=== PATIENT | male | born 1960 | race Caucasian/White ===

== ENCOUNTER 2022-03-03 09:23 | Outpatient (RCR) | payer BC, SELFPAY | END 2022-05-22 10:35 | disposition home or self-care (01) | PROVIDERS: PCP Family Medicine; Visit Provider Family Medicine | DX: M53.3 Sacrococcygeal disorders, not elsewhere classified (principal); Z51.89 Encounter for other specified aftercare | CPT/HCPCS: 97110; 97161 ==

== ENCOUNTER 2022-12-10 12:40 | Outpatient (CLI) | payer OTHER, SELFPAY ==
--- NOTE | 2022-12-10 13:00 | MR_ITS ---
[address] [address] Phone:?[phone] Fax:?[phone] Referring Physician Information: Anival York D.O. [address] [facility] [address] Phone:?[phone] Fax:?[phone] Patient:Frederick Wolfe Kip.Erica.B:?1960 Sex:?Male Phone:?[phone] [facility] MRN:?[id number] Exam Date:?12/10/2022 EXAM: MRI of the LEFT KNEE, without contrast CLINICAL: Left knee pain. COMPARISONS: None available. TECHNICAL: Multiplanar multisequence MRI of the left knee was obtained. SEDATION: None. CONTRAST: None. FINDINGS: Ligaments: ACL: Intact and unremarkable. PCL: Intact and unremarkable. MCL: Intact and unremarkable. LCL: Intact and unremarkable. Posterolateral corner: Popliteus, biceps femoris, iliotibial band, and the popliteofibular ligament appear intact. Posteromedial corner: Semimembranosus, pes anserine tendons and posterior oblique ligament appear intact. Extensor mechanism: Patellar tendon: There is minimal tendinosis and minimal partial tearing of the distal patellar tendon at the tibial attachment on axial series 4 images 31-35. Quadriceps tendon: Intact, without tendinopathy. Retinacula: Medial and lateral retinacula are intact. Fat pads: Unremarkable infrapatellar Hoffa's, quadriceps and prefemoral fat pads. Patellofemoral joint: Patella: Grade 2-3 chondral thinning involves the peripheral medial patellar facet with minimal subchondral edema involving the peripheral medial patellar facet. Trochlea: There is high-grade and full-thickness chondral loss involving the medial and central trochlea with underlying subchondral reactive edema. Medial compartment: Medial meniscus: There is horizontal undersurface tearing involving the posterior horn on sagittal series 6 image 6-9 with complex tearing and free edge blunting involving the body segment on coronal series 8 images 18-21. No significant meniscal displacement. Medial cartilage: Grade 3 chondral loss involves the posterior nonweightbearing medial femoral condyle. There is mild chondral heterogeneity of the weightbearing medial femoral condyle. Medial tibial plateau cartilage is preserved. Lateral compartment: Lateral meniscus: Mild focal radial tearing involving the free edge of the body segment on coronal series 8 image 19. Lateral meniscus otherwise appears intact. No meniscal displacement. Lateral cartilage: There is heterogeneity of the lateral tibial plateau cartilage. Focal deep chondral fissuring involves the posterior lateral tibial plateau adjacent to the posterior horn lateral meniscus on sagittal series 6 image 20. Small segment of high-grade/full-thickness chondral loss involves the weightbearing lateral femoral condyle on coronal series 8 image 20-22. Knee joint: Effusion: Physiologic left knee effusion. Intra-articular bodies:?Small intra-articular body is present posterior to the distal PCL measuring approximately 10 mm in craniocaudal dimension as seen on sagittal series 5 image 15. Popliteal cyst: None. Bones: No suspicious bone marrow signal alteration or fracture line. IMPRESSION: 1. Tearing of the medial meniscus as above. 2. Mild focal radial tear involving the free edge of the body segment lateral meniscus. 3. Joint frontal chondromalacia/chondral loss as above. 4. Minimal tendinosis/partial tearing of the distal patellar tendon at the tibial attachment. 5. Small 10 mm intra-articular body posterior to the distal PCL. 6. No evidence of ligamentous injury or fracture. [facility] Electronically signed on 12/11/2022 10:07:00 AM by Saji Arriola D.O.
== END 2022-12-10 12:41 | disposition home or self-care (01) ==
LOC: MRI 12:40
PROVIDERS: PCP Family Medicine; Visit Provider Family Medicine
DX: M25.562 Pain in left knee (principal); S83.242A Other tear of medial meniscus, current injury, left knee, initial encounter; S83.282A Other tear of lateral meniscus, current injury, left knee, initial encounter
CPT/HCPCS: 73721

== ENCOUNTER 2025-01-28 14:02 | Emergency (ER) | payer MEDICARE, SELFPAY ==
--- OUTSIDE RECORDS SUMMARY | 2025-01-28 14:04 | XMS_ITS | Clinical Summary ---
Author Organization [facility] Address [address] [place] [id number] Care Team Providers Care Parts Person Name Role Phone Zach Phillips MD Unavailable [phone] Fernie Kent MD Primary Care Provider + Allergies Active Allergy Reactions Criticality Noted Date Comments Dust Mites Other - Describe In Comment Field 12/29/2012 Sneezing, Congestion Medications MEDICATION ORDER COMPOSERIndication s:Unspecified sleep apnea cpap machine (replacement) and any tubing/mask needed to go with it, pressure setting at 8 cm 1 0 9 Active aspirin enteric coated 81 mg tablet Take 1 tablet by mouth once daily with a meal. 0 1 Active loratadine (CLARITIN) 10 mg tabletIndications: Rhinitis, unspecified type Take 1 Tablet (10 mg) by mouth once daily. 30 Tablet 3 Active fluticasone (50 mcg per actuation) nasal solution (FLONASE)Indicatio ns:Dysfunction of both eustachian tubes Inhale 2 Sprays into affected nostril(s) once daily. 48 g 3 4 Active CPAPIndications:OS A (obstructive sleep apnea) RESMED CPAP (E0601) machine for home use at pressure: 5-15cmw, Choice of mask (A7030 or A7034) w/full face cushion (A7031) x1/mo, nasal cushion (A7032) x2/mo, or nasal pillows (A7033) x 2/mo; Length of Need: 99 months; Frequency of use: Daily 1 Each 11 4 Active amLODIPine (NORVASC) 5 mg tabletIndications: Primary hypertension Take 1 Tablet (5 mg) by mouth once daily. 90 Tablet 3 4 Active atorvastatin (LIPITOR) 40 mg tabletIndications: Other hyperlipidemia TAKE 1 TABLET(40 MG) BY MOUTH EVERY DAY 90 Tablet 2 4 Active CPAPIndications:Ob structive sleep apnea CPAP (E0601) machine for home use at pressure: 5-15 cmH2O, Choice of mask (A7030 or A7034) w/full face cushion (A7031) x1/mo, nasal cushion (A7032) x2/mo, or nasal pillows (A7033) x 2/mo; Heated humidifier (E0562) x 1/5 year, Humidifier chamber (A7046) x 1/6mo, Chinstrap (A7036) x 1/6mo, Tubing (A4604 or A7037) x 1/3mo, Headgear (A7035) x 1/6mo, Filters: Disposable (A7038) x 2pk/1mo & Reusable (A7039) x 1pk/6mo; Length of Need: 99 months; Frequency of use: Daily DME: [employer]EW[employer] FOR SUPPLIES 1 Each 4 Active Active Problems Problem Noted Date Diagnosed Date Arthritis of right knee 09/19/2024 Radiculopathy with left lower extremity symptoms 04/06/2024 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 [address] [place] [address] Greg Connro MD Musculoskeletal Problem (Consult right knee pain, discuss PRP (platelet rich plasma) or Coolief procedures per TRU Aguilar) 01/01/2025 Travel 12/18/2024 9:30 AM CDT Office Visit [facility] [address] [address] Emiliano Najera PA Follow Up (right knee) 12/18/2024 Travel 11/29/2024 2:40 PM CDT Office Visit [facility] [address] [place] [address] Anival York DO Ear Problem (Bilateral ear wash ) 11/29/2024 Travel 11/27/2024 3:00 PM CDT Office Visit [facility] [address] [place] [address] Edwina Huntley AuD Hearing Aid (MOE check) 11/27/2024 Travel 11/24/[address] [facility] [address] [place] [address] Delfino Alfred AuD Hearing Aid (problem) 11/24/[address] [facility] [address] [place] [address] Delfino Alfred AuD DROPPED OFF HEARING AID 11/24/2024 Telephone [facility] [address] [place] [address] Aminah Boyd AuD Hearing Aid 11/22/2024 Telephone [facility] [address] [place] [address] Michael Thompson MD Knee Pain/problem from Last 3 Months Immunizations Immunization Administration Dates Next Due AMB Influenza, IIV3 (Age >=3 years)(Flu Clinic Only) 03/23/2011 AMB Influenza, IIV4 PF (=>6 mos Flulaval,Fluzone Fluarix)(Flu Clinic Only) 03/15/2014,03/23/2013 COVID-19 vaccine (Spinal Simplicity [employer] 30mcg/0.3mL) PF, MDV 04/29/2021,09/26/2020,09/05/2020 Influenza, IIV3 (Age 6-35 mos) 03/23/2011,2008 Influenza, IIV3 (Age >=3 years) 05/13/2012,04/07 Influenza, IIV4 03/18/2023, 2,03/24/2021,2019,04/04/2019,02/21/2018,02/26/2016,1 Influenza, IIV4 (=>6mos) MDV 02/18/2017 Influenza, IIV4 (Age 6-35 Mos) 03/23/2013 Pneumococcal Conj 20-valent (Prevnar 20) 02/09/2024 Pneumococcal Poly,23-Valent (Pneumovax) 06/14/1998 Td (Age >=7 Years) 02/12/2021,10/10/2004 Tdap 12/28/2011 Zoster (Shingrix-RZV, recombinant) 03/07/2020, Family History Medical History Relation Name Comments Cancer Father lung, smoker d5 2 Heart Disease Mother d71, mi Cancer-colon No Family History Cancer-prostate No Family History Relation Name Status Comments Brother Alive Daughter Alive Father Mother Sister 1 Alive Sister 2 Alive Sister 3 Alive Social History Tobacco Use Types Packs/Day Years Used Date Smoking Tobacco: Former Cigarettes Q uit: 06/14/2002 Smokeless Tobacco: Never Tobacco Cessation:Counseling Given: Yes Alcohol Use Standard Drinks/Week Comments Yes 14 (1 standard drink = 0.6 oz pu re alcohol) daily, 3-4 beers PHQ-2 Answer Date Recorded PHQ-2 TOTAL SCORE 0 04/12/2024 Social Connections Answer Date Recorded Do you often feel lonely or isolated from those around you? 0 11/29/2024 Financial Resource Strain Answer Date R ecorded Difficulty of Paying Living Expenses 3 11/29/2024 Difficulty of Paying Living Expenses Not on file 11/29/2024 Food Insecurity Answer Date Recorded Do you worry your food will run out before you are able to buy more? 1 11/29/2024 Transportation Needs Answer Date Record ed Does lack of transportation keep you from medica l appointments? 1 11/29/2024 Does lack of transportation keep you from work, meetings or getting things that you need? 1 11/29/2024 Housing Stability Answer Date Recorded What is your housing situation today? 1 11/29/2024 Utilities Answer Date Recorded Do you have trouble paying f or utilities (for example, heat, electricity, water, phone)? 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[employer] Gender Identity Not on file Sexual Orientation Not on file Occupation Industry Job Start Date Job End Date [employer] Not on file Not on file Not on file Obstetrics History Last Filed Vital Signs Vital Sign Reading Time Taken Comments Blood Pressure 151/80 01/01/2025 7:55 AM CDT Pulse 54 01/01/2025 7:55 AM CDT Temperature 36.9 C (98.4 F) 01/01/2025 7:55 AM CDT Respiratory Rate 18 03/15/2013 12:45 PM CDT Oxygen Saturation 95% 01/01/2025 7:55 AM CDT Inhaled Oxygen Concentration - - Weight 103.4 kg (228 lb) 11/29/2024 2:53 PM CDT Height 178 cm (5' 10.08) 05/25/2024 12:17 PM CS T Body Mass Index 32.64 05/25/2024 12:17 PM [employer] WORK[employer] Plan of Treatment Health Maintenance Due Date Last Done Comments COVID-19 vaccine series ( season) 2024 04/29/2021, 09/26/2020, 09/05/2020 Colonoscopy through age 75 06/16/202406/16, 06/16/2019, 06/16/2019, Additional history exists Influenza Vaccine (#1) 2025 3, 02/17/2022, 03/24/2021, Additional history exists Depression screening for age 12+ 04/12/2025 04/12/2024, 02/10/2024, 02/09/2024, Additional history exists Medicare Wellness for age 65+ 04/13/2025 04/12/2024 BMI (ht and wt on same day) for age 18+ 05/25/2025 05/25/2024, 04/12/2024, 04/06/2024, Additional history exists Lipids for age 45-75 02/23/2029 02/24/2024, 02/18/2023, 02/17/2022, Additional history exists Tetanus booster 02/12/2031 02/12/2021, 12/12, 10/10/2004 RSV vaccine for adults or (1 - 1-dose 75+ series) 2033 Hepatitis C screening for age 18-79 Completed 01/05/2014 Zoster (shingles) series for age 50+ Completed 03/07/2020, 11/23/2019 Pneumococcal series for age 50+ Completed 02/09/2024, 06/14/1998 AAA screening age 65-74 Completed 04/26/2024 Hepatitis B series for 19+ Aged Out N o longer eligible based on patient's age to complete this topic Procedures Procedure Name Priority Date/Time Associated Diagnosis Comments US ABD AORTA SCREENING Routine 04/26/2024 1:15 PM [employer] WORK[employer] Personal history of tobacco use, presenting hazards to health LIPID PANEL Routine 02/24/2024 7:23 AM CDT Other hyperlipidemia COLONOSCOPY SCREENING Routine 06/16/2019 11:51 AM [employer]EMENT ST[employer]AGE WORKER Screening for colon cancer ANTI HCV Routine 01/05/2014 9:13 AM CDT Need for hepatitis C screening test from Last 3 Months or Most Recently Relevant to Health Maintenance Results * US ABD AORTA SCREENING [[id number]] (04/26/2024 1:15 PM [employer] WORKER) Anatomical Region Laterality Modality Abdomen, AORTA Ultrasound 04/26/2024 8:07 PM [employer] STORAGE WORKER Narrative 04/26/2024 8:07 PM [employer]EMENT STORAGE WORKER For Patients: As a result of the Cures Act, medical imaging exams and procedure reports are released immediately into your electronic medical record. You may view this report before your referring provider. If you have questions, please contact your health care provider. Indication: Abdominal aortic aneurysm screening Technique: Grayscale and color ultrasound evaluation of the aorta and bilateral iliac arteries was performed. Comparison: None. Findings: Proximal aorta: 2.5 x 2.1 cm Mid aorta: 2 x 1.9 cm Distal aorta: 1.9 x 2 cm Right iliac artery: 1.6 x 1.4 cm Left iliac artery: 1.4 x 1.5 cm Impression: No sonographic evidence of abdominal aortic aneurysm. Dictated by Filemon Owens MD @ 04/26/2024 8:07:37 PM (Electronically Signed) Procedure Note Filemon Owens MD - 04/26/2024 For Patients: As a result of the Cures Act, medical imagingexams and procedure reports are released immediately into your electronicmedical record. You may view this report before your referring provider.If you have questions, please contact your health care provider. Indication: Abdominal aortic aneurysm screening Technique: Grayscale and color ultrasound evaluation of the aorta and bilateral iliacarteries was performed. Comparison: None. Findings: Proximal aorta: 2.5 x 2.1 cm Mid aorta: 2 x 1.9 cm Distal aorta: 1.9 x 2 cm Right iliac artery: 1.6 x 1.4 cm Left iliac artery: 1.4 x 1.5 cm Impression: No sonographic evidence of abdominal aortic aneurysm. Dictated by Filemon Owens MD @ 04/26/2024 8:07:37 PM (Electronically Signed) us Fernie Kent MD Final Re sult * LIPID PANEL (02/24/2024 7:23 AM CDT) [facility] CHOLESTEROL,TOTAL 162 100 - 199 mg/dL 02/24/2024 2:15 PM CDT [facility] [employer] LAB[facility] Comment: Cholesterol, Total Reference Ranges Desirable <200 mg/dL Borderline 200-239 mg/dL High >=240 mg/dL TRIGLYCERIDES 74 <150 mg/dL 02/24/2024 2:15 PM CDT [facility] HDL CHOLESTEROL 74 >40 mg/dL 2:15 PM CDT [facility] NON-HDL CHOLESTEROL 88 <145 mg/dl 02/24/2024 2:15 PM CDT [facility] CHOL/HDL RATIO 2.19 <4.50 02/24/2024 2:15 PM CDT [facility] LDL CHOLESTEROL 73 <=130 mg/dL 02/24/2024 2:15 PM CDT [facility] VLDL CHOLESTEROL 15 <=30 mg/dL 02/24/2024 2:15 PM CDT [facility] PROVIDER ORDERED STATUS RANDOM 02/24/2024 2:15 PM CDT [facility] Blood BLOOD SPECIMEN / Unknown Venipuncture / Unknown 02/24/2024 7:23 AM CDT 02/24/2024 7:23 AM CDT us Fernie Kent MD CHEMISTRY Final Re sult Performing Organization Address City/[facility]/ZIP Co de Phone Number [facility] 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 us Darrell Lazo MD SEND OUTS Final Resu lt [facility] [address] [place] [address], from Last 3 Months or Most Recently Relevant to Health Maintenance Insurance [employer] MEDICARE ADVANTAGE MR [facility] [place] [id number] Advance Directives * Full Code (Latest Code Status on File) Date Activated Date Inactivated Comments 03/15/2013 11:09 AM 03/15/2013 3:28 PM * Full Code Date Activated Date Inactivated Comments 09/28/2012 9:46 AM 09/28/2012 4:35 PM Care Teams Parts Person Relationship Specialty Start Date End Date Votel, [place] [address] [address] PCP - General Family Practice 11/29/24 Zach Phillips MD Neurology Neurology 12/28/11
[2025-01-28 14:17] VITALS: BP 170/88; PULSE 58; RESP 16; TEMP 36.6; O2SAT 95; BMI 29.8
--- NOTE | 2025-01-28 14:27 | ED.BACK ---
HPI - Back Pain/Injury General Time Seen by Provider: 14:29 Date Seen: 01/28/25 Chief Complaint: Back Injury/Pain Stated Complaint: back pain Time Seen by Provider: 01/28/25 14:27 Source: patient, RN notes reviewed and old records reviewed Mode of arrival: ambulatory Limitations: no limitations History of Present Illness HPI Narrative: 64-year-old male who presents today with right-sided back pain. This started a little bit 2 days ago, he played golf yesterday with minimal pain, and then pain was worse today. He says the pain is constant but does go up and down density. No pain with movement. Denies urinary symptoms. No fever or chills. Related Data Home Medications ?Medication ?Instructions ?Recorded ?Confirmed amlodipine 5 mg tablet 5 mg PO DAILY 01/28/25 01/28/25 aspirin 81 mg tablet,delayed 81 mg PO DAILY 01/28/25 01/28/25 release (Adult Aspirin Regimen) atorvastatin 40 mg tablet 40 mg PO DAILY 01/28/25 01/28/25 Allergies Allergy/AdvReac Type Severity Reaction Status Date / Time No Known Drug Allergies Allergy Verified 01/28/25 14:21 [facility] Social History Smoking Status: Former smoker What tobacco products do you use: cigarettes Years smoked: 20 Smoking quit date/years: >15 years ago Do you use any of these nicotine containing products: None Second hand tobacco smoke exposure: No How often do you have a drink containing alcohol: 4 or more times a week How many standard drinks containing alcohol do you have on a typical day: 5 or 6 How often do you have six or more drinks on one occasion: Never AUDIT-C Alcohol total score: 6 Non-prescribed substance use: denies use service: No Exam Narrative: Exam Narrative: General: Well-developed and well-nourished, no acute distress Head: Atraumatic and normocephalic Eyes: Pupils are equal reactive, extraocular motions intact, conjunctiva clear ENT: External nose and ears are normal, posterior pharynx without erythema or exudate Neck: No midline cervical tenderness, full spontaneous range of motion the neck, trachea midline, no adenopathy Heart: Regular rate and rhythm no murmurs or thrills Lungs: Clear to auscultation bilaterally without wheezes or crackles Abdomen: Soft, nontender, nondistended with active bowel sounds. Right CVA tenderness. Musculoskeletal: No tenderness, deformity, or edema Neurologic: Awake, alert, and oriented x3, no gross focal neurologic deficits, cranial nerves intact as tested Psych: Mood and affect are appropriate Skin: No rashes Const: Vital Signs, click to edit/add: Vital Signs - 24 hr 01/28/25 14:17 Temperature 97.9 F Pulse Rate [Pulse Oximeter] 58 L Respiratory Rate 16 Blood Pressure [Ri ght Upper Arm] 170/88 H Pulse Oximetry 95 Oxygen Delivery Me thod Room Air Course Course ED Course: Reviewed prior refer labs from February 2024 which showed creatinine 0.93, also reviewed most recent sports medicine clinic visit from January 01 which was for right knee pain, noted to have antalgic gait at that time, plan for nerve block. Patient chronically on amlodipine and atorvastatin. Patient presents today with right-sided back pain, started a little bit 2 days ago, felt okay yesterday and then worse today. Pain is constant but does wax and wane in intensity, not worse with movement. No known injury, no dysuria or hematuria, no history of kidney stones but symptoms certainly seem consistent with a kidney stone. Could be also musculoskeletal although clinically patient does not have any pain with movement including standing, bending, and twisting. Urinalysis ordered along with CT abdomen and pelvis. Reevaluation(s) Time of Reevaluation #1: 15:21 Reevaluation #1: CT abdomen pelvis independently interpreted by me with a right renal cyst, no hydronephrosis or hydroureter, no obstructing stone, no bony abnormalities. Urinalysis independently interpreted by me without evidence of infection. Patient is stable discharged with muscle relaxant, Lidoderm patches, and follow-up primary care or Sports Medicine. Vital Signs Vital signs: Initial Vital Signs Temperature 97.9 F 01/28/25 14:17 Temperature Source Temporal Artery Scan 01/28/25 14:17 Pulse Rate 58 L 01/28/25 14:17 Respiratory Rate 16 01/28/25 14:17 Blood Pressure 170/88 H 01/28/25 14:17 Blood Pressure Mean 115 H 01/28/25 14:17 Blood Pressure Position Sitting 01/28/25 14:17 Pulse Oximetry 95 01/28/25 14:17 Oxygen Delivery Method Room Air 01/28/25 14:17 Vital Signs Temperature 97.9 F 01/28/25 14:17 Pulse Rate 58 L 01/28/25 14:17 Respiratory Rate 16 01/28/25 14:17 Blood Pressure 170/88 H 01/28/25 14:17 Pulse Oximetry 95 01/28/25 14:17 Oxygen Delivery Method Room Air 01/28/25 14:17 Temperature 97.9 F 01/28/25 14:17 Pulse Rate 58 L 01/28/25 14:17 Respiratory Rate 16 01/28/25 14:17 Blood Pressure 170/88 H 01/28/25 14:17 Pulse Oximetry 95 01/28/25 14:17 Oxygen Delivery Method Room Air 01/28/25 14:17 MDM - Back Pain/Injury Lab Data Labs: Lab Results 01/28/25 Range/Units 15:00 Urine Color Yellow (Yellow) Urine Appearance Clear (Clear) Urine pH 6.0 (5.0-8.5) Ur Specific [place] 1.025 (1.000-1.030) Urine Protein Negative (Negative) Urine Glucose (UA) Negative (Negative) Urine Ketones Negative (Negative) Urine Blood Negative (Negative) Urine Nitrite Negative (Negative) Urine Bilirubin Negative (Negative) Urine Urobilinogen 0.2 (0.2-1.0) Ur Leukocyte Esterase Negative (Negative) Discharge Plan Discharge Clinical Impression: Strain of lumbar region Instructions: Back Pain (ED), P.R.I.C.E. Treatment (ED) Additional Instructions: Continue Tylenol and ibuprofen as needed for pain Follow-up with your primary care provider or sports medicine for further evaluation and treatment Activity Level: Activity as Tolerated Discharge Diet: Regular Prescriptions: No Action atorvastatin 40 mg tablet 40 mg PO DAILY amlodipine 5 mg tablet 5 mg PO DAILY aspirin [Adult Aspirin Regimen] 81 mg tablet,delayed release (DR/EC) 81 mg PO DAILY Follow Up/Referrals: Fernie Kent MD [Primary Care Provider, Family Practice] Stand Alone Forms: [employer] Info Instructions
[2025-01-28 15:07] LABS: Appearance Urine Clear (Clear)
--- NOTE | 2025-01-28 15:11 | CRLHL7_ITS ---
For Patients: As a result of the 21st Century Cures Act, medical imaging exams and procedure reports are released immediately into your electronic medical record. You may view this report before your referring provider. If you have questions, please contact your health care provider. INDICATION: Right flank pain. TECHNIQUE: CT abdomen and pelvis without contrast. COMPARISON: None. FINDINGS: Lower chest: No focal consolidation. Evaluation of solid organs is limited secondary to lack of IV contrast administration. Liver: No suspicious focal hepatic lesion. Gallbladder and bile ducts: Gallbladder is decompressed, suboptimally evaluated. No calcified gallstones. Pancreas: Unremarkable. Spleen: Unremarkable. Splenule is noted. Adrenal glands: Unremarkable. Kidneys: No renal calculi or hydronephrosis bilaterally. Simple appearing exophytic 6 cm cyst extending off of the lower pole of the right kidney. Retroperitoneum: No lymphadenopathy. Bowel and mesentery: Bowel is not obstructed. No significant ascites, no pneumoperitoneum. Prominent appendix, without periappendiceal inflammatory changes, favored to reflect a normal variant. Bladder: Circumferential bladder wall thickening. Reproductive organs: Prostatomegaly. Pelvic lymph nodes: No lymphadenopathy. Vessels: Few scattered atherosclerotic calcifications. Abdominal wall: Small left inguinal hernia contains a short segment loop of colon, without evidence of bowel obstruction at this time. Bones: Multilevel degenerative changes of the spine. Ill-defined lytic area within the L3 vertebral body, indeterminate, may reflect a small hemangioma. IMPRESSION: 1. Circumferential urinary bladder wall thickening, worrisome for cystitis. Recommend correlation with urinalysis. 2. Prostatomegaly, correlate with serum PSA. 3. Multiple additional incidental findings as above, including an ill-defined lytic area within the L3 vertebral body, indeterminate. Please note that all CT scans at this facility use dose modulation, iterative reconstruction, and/or weight-based dosing when appropriate to reduce radiation dose to as low as reasonably achievable. Dictated by Kyra Strickland MD @ 01/28/2025 4:06:19 PM (Electronically Signed)
== END 2025-01-28 16:34 | disposition home or self-care (01) ==
LOC: ED 15:19
PROVIDERS: Emergency Provider Family Medicine; PCP Family Medicine
DX: S39.012A Strain of muscle, fascia and tendon of lower back, initial encounter (principal)
CPT/HCPCS: 74176; 81003; 99283; 99284

== ENCOUNTER 2025-03-16 09:43 | Outpatient (CLI) | payer MEDICARE, SELFPAY ==
--- NOTE | 2025-03-16 10:54 | P.ANES_ITS ---
Anesthesia Charges Start Date/Time Anesthesia Start Date: 03/16/25 Anesthesia Start Time: 10:33 Stop Date/Time Anesthesia Stop Date: 03/16/25 Anesthesia Stop Time: 10:53 Coding CPT Codes CPT Codes: VICK LWR INTST NDSC NOS - [id number] ([id number]) P2 - PATIENT W/MILD SYST DISEASE, QK - DAIRY FARM MANAGER 2-4 CNCRNT ANES PROC, QX - REPORT SPECIALIST SVC W/ MD MED DIRECTION
--- NOTE | 2025-03-16 10:54 | W.ANESCHARGE ---
Anesthesia Charges Start Date/Time Anesthesia Start Date: 03/16/25 Anesthesia Start Time: 10:33 Stop Date/Time Anesthesia Stop Date: 03/16/25 Anesthesia Stop Time: 10:53 Coding CPT Codes CPT Codes: VICK LWR INTST NDSC NOS - [id number] ([id number]) P2 - PATIENT W/MILD SYST DISEASE, QK - PHOTO BOOTH OPERATOR 2-4 CNCRNT ANES PROC, QX - SHOP FIRER/FIREMAN SVC W/ MD MED DIRECTION
--- NOTE | 2025-03-16 12:05 | P.ANES_ITS ---
Anesthesia Charges Start Date/Time Anesthesia Start Date: 03/16/25 Anesthesia Start Time: 10:33 Stop Date/Time Anesthesia Stop Date: 03/16/25 Anesthesia Stop Time: 10:53 Coding CPT Codes CPT Codes: VICK LWR INTST NDSC NOS - [id number] ([id number]) P2 - PATIENT W/MILD SYST DISEASE, QK - STATION ATTENDANT 2-4 CNCRNT ANES PROC, QX - GAME ATTENDANT SVC W/ MD MED DIRECTION
--- NOTE | 2025-03-16 12:05 | W.ANESCHARGE ---
Anesthesia Charges Start Date/Time Anesthesia Start Date: 03/16/25 Anesthesia Start Time: 10:33 Stop Date/Time Anesthesia Stop Date: 03/16/25 Anesthesia Stop Time: 10:53 Coding CPT Codes CPT Codes: VICK LWR INTST NDSC NOS - [id number] ([id number]) P2 - PATIENT W/MILD SYST DISEASE, QK - TELEVISION PRODUCTION CLERK 2-4 CNCRNT ANES PROC, QX - FUEL DOCK ATTENDANT SVC W/ MD MED DIRECTION
== END 2025-03-16 09:44 | disposition home or self-care (01) ==
LOC: OP CLINIC 09:43
PROVIDERS: PCP Family Medicine; Visit Provider Internal Medicine Gastroenterology
DX: Z12.11 Encounter for screening for malignant neoplasm of colon (principal); Z86.0101 Personal history of adenomatous and serrated colon polyps; D12.0 Benign neoplasm of cecum; D12.2 Benign neoplasm of ascending colon
CPT/HCPCS: 00811; 45380; 45385; J2704